=== PATIENT | female | born 1960 | race Caucasian/White ===

== ENCOUNTER 2018-01-31 12:12 | Day surgery (SDC) | payer OTHER ==
[2018-01-31] MEDS ORDERED: LIDOCAINE 2% JELLY 5 ML (14:15)
== END 2018-01-31 16:25 | disposition home or self-care (01) ==
LOC: GIL 12:12
DX: K62.89 Other specified diseases of anus and rectum (principal); K62.5 Hemorrhage of anus and rectum; N94.10 Unspecified dyspareunia
CPT/HCPCS: 45330